=== PATIENT | female | born 1940 | race Caucasian/White ===

== ENCOUNTER → 2016-06-26 | Outpatient (CLI) | payer MEDICARE ==
[~2016-06-26] MED LIST: BIOT7500 PO; BRIM0.2S4 LEFT EYE; CALC500C2 CHEW; CHOL1TAB42 PO; COZA50TA PO; DORZ2SOL15 EACH EYE; ESTR1TAB PO; FLEC1TAB8 PO; GABA300 PO; GABA300C5 PO; LIDO1PAD TOP; LIDO2GEL11 TOPICAL; LOSA50TA PO; MEDR2.5T19 PO; MEDR2.5T2 PO; METH50TA2 PO; POTA99TA12 PO; PRESCAP5 PO; PRIL20CA9 PO; TAMB50TA2 PO
[2016-06-26 12:13] LABS: AUTOMATED NEUTROPHIL # 3.8 TH/MM3 (1.8-7.7); BASOPHIL # 0.1 TH/MM3 (0-0.2); BASOPHIL % 0.9 % (0.0-2.0); EOSINOPHIL # 0.2 TH/MM3 (0-0.4); EOSINOPHIL % 3.6 % (0.0-4.0); HEMATOCRIT 41.9 % (35.0-46.0); HEMO FLAGS DIFF FINAL; LYMPH % 17.9 % (9.0-44.0); LYMPHOCYTE # 1.1 TH/MM3 (1.0-4.8); MEAN CELL VOLUME 94.3 FL (80.0-100.0); MEAN CORPUSCULAR HEMOGLOBIN 31.2 PG (27.0-34.0); MEAN CORPUSCULAR HGB CONC 33.1 % (32.0-36.0); MONO % 16.2 % (0.0-8.0); NEUT % 61.4 % (16.0-70.0); PLATELET COUNT 293 TH/MM3 (150-450); RED BLOOD COUNT 4.44 MIL/MM3 (4.00-5.30); RED CELL DISTRIBUTION WIDTH 13.4 % (11.6-17.2); WHITE BLOOD COUNT 6.2 TH/MM3 (4.0-11.0)
[2016-06-26 12:17] LABS: BACTERIA, URINE RARE /hpf; BLOOD, URINE NEG (NEG); GLUCOSE,URINE NEG (NEG); KETONE, URINE NEG (NEG); NITRITE,URINE NEG (NEG); SQUAMOUS EPITHELIAL CELL URINE 1 /hpf (0-5); URINE COLOR YELLOW (YELLW/STRAW)
[2016-06-26 12:33] LABS: BICARBONATE 27.4 MEQ/L (21.0-32.0); POTASSIUM 4.4 MEQ/L (3.5-5.1)
--- NOTE | 2016-06-27 16:59 | EKG ---
Date Performed: 06/26/2016 Time Performed: 11:46:08 PTAGE: 75 years EKG: Sinus rhythm WITH FIRST DEGREE AV BLOCK INCOMPLETE RIGHT BUNDLE BRANCH BLOCK POSSIBLE ANTERIOR MYOCARDIAL INFARCT ION, OF INDETERMINATE AGE Since previous tracing, no significant change noted ABNORMAL ECG PREVIOUS TRACING : 10/31/2013 14.12.40 DOCTOR: Michael Napier Interpretating Date/Time 06/27/2016 16:59:17
== END ==
LOC: CPRE 10:35
PROVIDERS: ATTEND Obstetrics & Gynecology
DX: Z01.812 Encounter for preprocedural laboratory examination (principal); Z01.810 Encounter for preprocedural cardiovascular examination; R19.00 Intra-abdominal and pelvic swelling, mass and lump, unspecified site; R94.31 Abnormal electrocardiogram [ECG] [EKG]
CPT/HCPCS: 36415; 80048; 81001; 85025; 93005

== ENCOUNTER → 2016-06-29 | Day surgery (SDC) | payer MEDICARE ==
--- NOTE | 2016-06-28 18:22 | MH ---
cc: DAVIDSON MENDEZ DATE OF ADMISSION 06/29/2016 DATE OF 1940 DATE OF PROCEDURE June 29, 2016 SCHEDULED PROCEDURE Hysteroscopy with MyoSure removal of polyp using the MyoSure technique. HISTORY OF THE PRESENT CONDITION The patient is a very pleasant but somewhat complicated 75-year-old, , white female para 2 with intact pelvis who has been having is been having multiple postmenopausal bleeding episodes. She is scheduled for H scope and a MyoSure. She has been on estrogen and progestin. She has osteoporosis, gastroesophageal reflux disease. She is somewhat frail and has had multiple fractures. She has had a Medrol Dosepak x3 for back pain this year. Her initial bleed occurred this May and it was for two to three days. It was complicated by some cramping. She had to stop her diclofenac due to tummy upset. She was not sure if that was related to the bleeding. She does have a property analyst Dr. Ruiz she needs to see, she has pain in her feet and her thumbs. She has had no recent colds or infection. ALLERGIES SHE IS ALLERGIC TO SULFA AND AZITHROMYCIN. MEDICATIONS Her medications: 1. Omeprazole 20. 2. Medroxyprogesterone 2.5. 3. Losartan. 4. Lidocaine ointment. 5. Glaucoma drops. 6. Gabapentin 300 twice a day. 7. Estradiol 1 milligram daily. Her weight is 130. Her blood pressure is 120/78. She is 5'9". She does not smoke. PHYSICAL EXAMINATION NECK: She has no thyroid enlargement. LUNGS: Her lungs are clear to auscultation. CARDIOVASCULAR: Heart rate and rhythm are regular without murmur, heaves or thrills. BREASTS: Are without dominant mass, nipple discharge, skin retraction. She does not smoke, drink or use illicit drugs. PELVIC: Perineum is mildly atrophic. Vault is elevated. Cervix is multiparous. Uterus is small, anteverted. Both ovaries are not palpable. RECTAL: Guaiac is negative. IMPRESSION Postmenopausal bleeding with indices suggestive of a polyp. PLAN The plan is to proceed with removal of this and identification of any precancer or cancer. Risks, benefits and expectations have been discussed in detail and she is scheduled to proceed on morning. MD AMOL Davis/KK /5:40 PM /6:07 PM
[~2016-06-29] VITALS: Ht 175.3 cm; Wt 62.0 kg
[~2016-06-29] MED LIST changes: -BIOT7500 PO; -COZA50TA PO; +DEXAMETHASONE SOD PHOS 4 MG/ML VIAL ONE; +DICLOFENAC SODIUM 37.5 MG/ML VIAL IV PUSH ONE; +FAMOTIDINE 20 MG/2 ML VIAL ONE; -GABA300 PO; +HYDROCORTISONE SOD SUCCINATE 100 MG VIAL IV SCH; +INSULIN HUMAN REGULAR 1,000 UNITS/10 ML VIAL SQ PRN; +LACTATED RINGER'S 1000 ML IV SCH; -LIDO1PAD TOP; -MEDR2.5T19 PO; +METOPROLOL TARTRATE 25 MG TAB PO PRN; +MIDAZOLAM HCL 2 MG/2 ML VIAL ONE; +ONDANSETRON HCL 4 MG/2 ML VIAL IV PUSH ONE; -POTA99TA12 PO; +PROPOFOL 200 MG/20 ML AMP IV ONE; +SODIUM CHLORID 0.9% 500 ML IV SCH; -TAMB50TA2 PO; +ceFAZolin 1,000 MG/NS 100 ML IV SCH; +fentaNYL CITRATE 250 MCG/5 ML AMP ONE
[2016-06-29 06:31] VITALS: BP 158/80; PULSE 68; RESP 20; TEMP 98.2; O2SAT 99
--- NOTE | 2016-06-29 09:06 | MP ---
cc: CARMELINA MENDEZ M.D. Corrected: 07/03/2016 DATE OF SURGERY June 29, 2016 DATE OF 1940. PREOPERATIVE DIAGNOSIS Postmenopausal spotting and bleeding with polyps seen on Endosee. POSTOPERATIVE DIAGNOSIS Postmenopausal spotting and bleeding with polyps seen on Endosee. PROCEDURE Hysteroscopy and MyoSure excision of small polyps and endometrial lining. ANESTHESIA General. SURGEON MD Terrence BARREL DRILLER Jim, third year medical student FINDINGS The intrauterine cavity was largely atrophic with a couple of small polyps at the top. There was an area of a little bit of exuberant tissue on the posterior wall which was excised, otherwise the cavity was remarkably clean with no evidence of fibroids, synechiae, muellerian anomalies. There was no iatrogenic injury or other intrinsic pathology identified. Fluid deficit was negligible. Sponge, instrument and needle count were correct and she tolerated the procedure well. PROCEDURE The patient was identified as Sheridan Ferguson. Her permit was reviewed with her in holding. She was taken to the operating room, administered 1 gram of Ancef. She was prepped and draped in the usual sterile fashion after undergoing anesthesia in the dorsal lithotomy position. A red rubber catheter was used to drain the bladder. Examination under anesthesia was performed and a time-out was performed with all in attendance. The uterus was anteverted, mobile, small. The ovaries were not palpable. There was really negligible descent. The cervix was without any obvious lesions. It was very gently dilated to avoid perforation of the small uterus and then to allow the MyoSure hysteroscope into the intrauterine cavity. Excellent visualization was obtained with systematic evaluation of the entire intrauterine cavity. The MyoSure was used to remove the small polyp and most of the lower uterine endometrium which seemed a little bit more lush than it should be for a 68-year-old woman. This will all be sent to pathology. There was no iatrogenic injury. The instrumentation was removed, she was placed in dorsal supine position, awoken and taken to the recovery room in stable condition. Carmelina Mendez MD PPC/SSB /8:39 AM /8:53 AM [facility]ITALMary Ellen
[2016-06-29 10:00] VITALS: BP 150/69; PULSE 57; RESP 16; TEMP 97.8; O2SAT 97
== END | disposition home or self-care (01) ==
LOC: HSDC 05:44
PROVIDERS: ATTEND Obstetrics & Gynecology
DX: N84.0 Polyp of corpus uteri (principal); N95.0 Postmenopausal bleeding
CPT/HCPCS: 00952; 58561; 86850; 86900; 86901; 88305; J0690; J1100; J1130; J2250; J2405; J3010; J7120

== ENCOUNTER 2017-08-16 14:50 | Inpatient (IN) | payer MEDICARE ==
[~2017-08-16] VITALS: Ht 175.3 cm; Wt 58.0 kg
[~2017-08-16 14:50] MED LIST changes: -DEXAMETHASONE SOD PHOS 4 MG/ML VIAL ONE; -DICLOFENAC SODIUM 37.5 MG/ML VIAL IV PUSH ONE; -FAMOTIDINE 20 MG/2 ML VIAL ONE; -HYDROCORTISONE SOD SUCCINATE 100 MG VIAL IV SCH; -INSULIN HUMAN REGULAR 1,000 UNITS/10 ML VIAL SQ PRN; -LACTATED RINGER'S 1000 ML IV SCH; -METOPROLOL TARTRATE 25 MG TAB PO PRN; -MIDAZOLAM HCL 2 MG/2 ML VIAL ONE; -ONDANSETRON HCL 4 MG/2 ML VIAL IV PUSH ONE; -PROPOFOL 200 MG/20 ML AMP IV ONE; -SODIUM CHLORID 0.9% 500 ML IV SCH; -ceFAZolin 1,000 MG/NS 100 ML IV SCH; -fentaNYL CITRATE 250 MCG/5 ML AMP ONE
[2017-08-16] MEDS ORDERED: ONDANSETRON ODT 4 MG TAB PO ONE (15:15)
[2017-08-16 15:43] VITALS: BP 188/91; PULSE 81; RESP 19; TEMP 98.5; O2SAT 97
--- NOTE | 2017-08-16 15:53 | RADRPT ---
EXAM DATE/TIME: 08/16/2017 15:25 [place] COMPARISON: No previous studies available for comparison. INDICATIONS : Left hip pain after fall on tile. MEDICAL HISTORY : None. SURGICAL HISTORY : None. ENCOUNTER: Initial ACUITY: 1 day PAIN SCORE: 10/10 LOCATION: Left hip. FINDINGS: There is evidence of an acute fracture involving the junction of the left superior pubic ramus and sy mphysis pubis. Mild degenerative changes are noted involving the hips bilaterally. CONCLUSION: Acute fracture involving the junction of the left superior pubic ramus and symphysis pubis. William Yarbrough MD on August 16, 2017 at 15:48 Board Certified Radiologist. This report was verified electronically.
[2017-08-16] MEDS ORDERED: MORPHINE SULFATE 4 MG/ML INJ IM ONE (16:00)
--- NOTE | 2017-08-16 16:04 | PD ---
HPI Chief Complaint: Fall Time Seen by Provider: 15:25 Travel History International Travel<30 days: No Contact w/Intl Traveler<30days: No Traveled to known affect area: No History of Present Illness HPI 76-year-old female presents to emergency department with complaint of left hip pain after losing her balance while holding a bathroom door open and trying to throw away a napkin at the same time and falling from a standing position onto tile floor today. Denies hitting her head or loss of consciousness. Denies neck pain, back pain, headache. Denies anticoagulant therapy. Denies lightheadedness, dizziness. Reports nausea without vomiting. Denies paresthesias, loss of sensation to bilateral lower extremities. Reports decreased range of motion of the left lower extremity secondary to hip pain. Rates pain 10/10. Describes it as a stabbing sensation. Pain is worse with movement. Better at rest. Allergies to sulfa. Primary care provider is Dr. Montoya. Orthopedic doctor is Dr. Valenzuela. History of mitral valve prolapse and hypertension. Has no other medical complaints. No other modifying factors or associated signs and symptoms. PFSH Past Medical History Arthritis: Yes (OA) Heart Rhythm Problems: No Cancer: Yes (MELANOMA ) Cardiac Catheterization: No Cardiovascular Problems: Yes (MITRAL VALVUE PROLAPS) High Cholesterol: No Congestive Heart Failure: No Diabetes: No Diminished Hearing: No Endocrine: No GERD: Yes Genitourinary: No Hepatitis: No Hiatal Hernia: No Hypertension: Yes Immune Disorder: No Medical other: Yes (BROKEN NECK C-5) Musculoskeletal: Yes (OA ) Neurologic: No Psychiatric: No Reproductive: No Respiratory: No Thyroid Disease: No ?: Not Menopausal: Yes Past Surgical History Abdominal Surgery: Yes (APPY) AICD: No Appendectomy: Yes Body Medical Devices: NONE Cardiac Surgery: No Coronary Artery Bypass Graft: No Ear Surgery: No Endocrine Surgery: No Eye Surgery: Yes (CATARACT KELY) Genitourinary Surgery: No Gynecologic Surgery: No Joint Replacement: Yes (R TKA) Oral Surgery: No Pacemaker: No Thoracic Surgery: No Tonsillectomy: Yes Other Surgery: Yes Social History Alcohol Use: Yes (2 GLASSES OF WINE AT [employer]) Tobacco Use: No (QUIT 50 YRS AGO) Substance Use: No Allergies-Medications (Allergen,Severity, Reaction): Coded Allergies: Sulfa (Sulfonamide Antibiotics) (Unverified Allergy, Severe, rash, 4/12/18 ) azithromycin (Unverified Allergy, Severe, rash, 08/16/17) erythromycin base (Unverified Allergy, Mild, RASH, 08/16/17) Uncoded Allergies: ADHESIVE (Allergy, Unknown, SKIN REDNESS FROM CONTACT WITH ADHESIVE, ) Reported Meds & Prescriptions Reported Meds & Active Scripts Active Wheelchair (Device) 1 Mis Mis Ea .XX DIRECTED Walker/Adult/Folding (Device) 1 Mis Mis Ea .XX DIRECTED Zofran Odt (Ondansetron Odt) 4 Mg Tab 4 Mg SL Q8HR PRN Ibuprofen 600 Mg Tab 600 Mg PO Q6H PRN Percocet (Oxycodone-Acetaminophen) 2.5-325 mg Tab 1 Tab PO Q4H PRN Robaxin (Methocarbamol) 500 Mg Tab 500 Mg PO QID PRN Reported Hydrochlorothiazide 12.5 Mg Cap 12.5 Mg PO DAILY Preservision Areds (Multiple Vitamins W/ Minerals) 1 Tab 2 Tab PO DAILY Cranberry Urinary Comfort (Vitamins C & E) 1 Cap 1 Cap PO DAILY Acidophilus Lactobacillus (Lactobacillus Acidophilus) 1 Each Capsule Vitamin B-12 (Cyanocobalamin) 1,000 Mcg Tab 1,000 Mcg PO DAILY Medroxyprogesterone Acetate 5 Mg Tab 2.5 Mg PO DAILY Start day 21 Latanoprost Opth Drops (Latanoprost) 0.005% Drops 1 Drop LEFT EYE HS Refrigerate until opened. Omeprazole 20 Mg Tab 20 Mg PO DAILY Vitamin D-3 (Cholecalciferol) 2,000 Unit Tab 2,000 Mg PO DAILY Calcium (Calcium Carbonate-Cholecalciferol) 1,250-100 Mg-Unit Chew 1 Tab CHEW DAILY Dorzolamide-Timolol Opth Drops 22.3-6.8 Mg/Ml Soln 1 Drop EACH EYE BID Brimonidine Opth Drops (Brimonidine Tartrate) 0.2% Soln 1 Drop LEFT EYE BID Estradiol 1 Mg Tab 1 Mg PO DAILY Flecainide (Flecainide Acetate) 50 Mg Tab 50 Mg PO DAILY Gabapentin 300 Mg Cap 300 Mg PO HS Losartan (Losartan Potassium) 50 Mg Tab 50 Mg PO DAILY Methazolamide 50 Mg Tab 25 Mg PO BID Review of Systems Except as stated in HPI: all other systems reviewed are Neg Physical Exam Narrative GENERAL: Well-nourished, well-developed female patient, in no acute distress; afebrile, nontoxic-appearing SKIN: Warm and dry. HEAD: Atraumatic. Normocephalic. EYES: Pupils equal and round. No scleral icterus. No injection or drainage. ENT: Mucosa pink and moist. Airway patent. NECK: Moving freely. Trachea midline. CARDIOVASCULAR: Regular rate and rhythm. No murmur appreciated. RESPIRATORY: No accessory muscle use. Lungs sounds clear and equal bilaterally. GASTROINTESTINAL: Abdomen soft, non-tender, nondistended. Positive bowel sounds. No hepato-splenomegaly, or palpable masses. No guarding. MUSCULOSKELETAL: Left hip with full active flexion; without erythema, edema, or ecchymosis; unable to assess abduction secondary to patient; no tenderness on palpation to the lateral or anterior aspect on palpation; no obvious deformity; no leg length discrepancy. Left lower extremity is supple and non-tense with 2 + pedal pulse and sensory intact and without erythema or edema. NEUROLOGICAL: Awake and alert. Oriented 3. No obvious cranial nerve deficits. Motor grossly within normal limits. Normal speech. PSYCHIATRIC: Appropriate mood and affect; insight and judgment normal. Data Data Last Documented VS Vital Signs Date Time Temp Pulse Resp B/P (MAP) Pulse Ox O2 Delivery O2 Flow Rate FiO2 08/16/17 15:43 98.5 81 19 188/91 (123) 97 Room Air Orders Orders Hip, Uni(Ap&Lat) W Ap Pelvis (08/16/17 15:06) Ice/Cold Pack (08/16/17 15:06) Ondansetron Odt (Zofran Odt) (08/16/17 15:15) Morphine Inj (Morphine Inj) (08/16/17 16:00) Iv Access Insert/Monitor (08/16/17 16:46) Ondansetron Inj (Zofran Inj) (08/16/17 17:00) Diet Regular Basic (08/16/17 Dinner) Admit Order (Ed Use Only) (08/16/17 17:08) [facility] Medical Decision Making Medical Screen Exam Complete: Yes Emergency Medical Condition: Yes Medical Record Reviewed: Yes Differential Diagnosis Fall, pelvic fracture, hip fracture, contusion Narrative Course 76-year-old female with complaint of left hip pain after mechanical fall today. Denies hitting her head or loss of consciousness. Denies neck pain or back pain. Left hip with AP pelvis and Zofran ordered in triage. Morphine IM ordered 1615: Left hip with pelvis x-ray concluded: Hip and Pelvis X-Ray 08/16/17 1506 Signed Impressions: Service Date/Time: August 15:25 - CONCLUSION: Acute fracture involving the junction of the left superior pubic ramus and symphysis pubis. William Yarbrough MD X-ray findings discussed with the patient and patient given a copy of the x-ray report. Patient does not feel comfortable going home and continues to be nauseated. She says she lives alone and has nobody to help her. I talked to case management and they recommended admission. Call placed to [facility] for patient admission. 1710: I spoke with , [facility] and report was given for patient admission; admit to Dr. Mendoza. Diagnosis Primary Impression: Fall Qualified Codes: W19.XXXA - Unspecified fall, initial encounter Additional Impression: Pubic bone fracture Qualified Codes: S32.592A - Other specified fracture of left pubis, initial encounter for closed fracture Referrals: Orthopaedic Surgeon Primary Care Physician Patient Instructions: Fall Prevention for Older Adults (ED), General Instructions, Pelvic Fracture (ED) Additional Instructions: Percocet as prescribed and as needed for pain; do not drive or drink alcohol while taking Percocet Ibuprofen as directed and as needed for pain; may alternate with Percocet to help minimize pain and inflammation Ice to affected area to help decrease pain and inflammation Wheelchair/walker for support Physical therapy as needed for rehabilitation Follow-up with primary care provider Follow-up with orthopedic surgeon Return to the emergency department immediately with worsening of symptoms Med/Other Pt SpecificInfo: Prescription(s) given Scripts Wheelchair (Wheelchair) 1 Mis Mis EA .XX DIRECTED, #1 0 Refills Prov: Jo Ann Rincon [employer] 08/16/17 Walker/Adult/Folding (Walker/Adult/Folding) 1 Mis Mis EA .XX DIRECTED, #1 0 Refills Prov: Jo Ann Rincon [employer] 08/16/17 Ondansetron Odt (Zofran Odt) 4 Mg Tab 4 MG SL Q8HR Y for Nausea/Vomiting, #10 TAB 0 Refills Prov: RassJo Ann bang 08/16/17 Ibuprofen (Ibuprofen) 600 Mg Tab 600 MG PO Q6H Y for PAIN LESS THAN 5 ON SCALE, #20 TAB 0 Refills Prov: Jo Ann Rincon 08/16/17 Oxycodone-Acetaminophen (Percocet) 2.5-325 mg Tab 1 TAB PO Q4H Y for PAIN GREATER THAN 5, #20 TAB 0 Refills Prov: Jo Ann Rincon 08/16/17 Methocarbamol (Robaxin) 500 Mg Tab 500 MG PO QID Y for MUSCLE SPASM, #30 TAB 0 Refills Prov: Jo Ann Rincon 08/16/17 Disposition: 01 DISCHARGE HOME Condition: Stable Jo Ann Rincon Aug 16, 2017 16:04
[2017-08-16] MEDS ORDERED: VITA10002 PO (16:06)
[2017-08-16] MEDS ORDERED: OCUVTAB4 PO (16:06)
[2017-08-16] MEDS ORDERED: CRANCAP2 PO (16:06)
[2017-08-16] MEDS ORDERED: LATA0.002 LEFT EYE (16:06)
[2017-08-16] MEDS ORDERED: LACT1CAP20 (16:06)
[2017-08-16] MEDS ORDERED: OMEP20TA93 PO (16:06)
[2017-08-16] MEDS ORDERED: HYDR12.57 PO (16:06)
[2017-08-16] MEDS ORDERED: MEDR5TAB3 PO (16:06)
[2017-08-16] MEDS ORDERED: ZOFR4TAB3 SL (16:20)
[2017-08-16] MEDS ORDERED: IBUP-232 PO (16:20)
[2017-08-16] MEDS ORDERED: PERC2.5T PO (16:20)
[2017-08-16] MEDS ORDERED: ROBA500T PO (16:20)
[2017-08-16] MEDS ORDERED: WALKER/ADULT/FO1 MIS (16:23)
[2017-08-16] MEDS ORDERED: WHEEMIS3 (16:23)
[2017-08-16] MEDS ORDERED: METHOCARBAMOL 500 MG TAB PO ONE (16:45)
[2017-08-16] MEDS ORDERED: ONDANSETRON HCL 4 MG/2 ML VIAL IVP ONE (17:00)
[2017-08-16] MEDS ORDERED: MORPHINE SULFATE 4 MG/ML INJ IV PUSH ONE (18:00)
[2017-08-16 18:02] VITALS: BP 165/76; PULSE 72; RESP 21; O2SAT 98
[2017-08-16] MEDS ORDERED: MORPHINE SULFATE 4 MG/ML INJ IV PUSH PRN (19:45)
[2017-08-16] MEDS ORDERED: SODIUM CHLOR 0.9% 1000 ML INJ 1,000 ML IV SCH (19:45)
[2017-08-16] MEDS ORDERED: METHOCARBAMOL 500 MG TAB PO PRN (19:45)
[2017-08-16] MEDS ORDERED: LORazepam 2 MG/ML VIAL IV PUSH PRN (19:45)
--- NOTE | 2017-08-16 19:56 | HHI.HP ---
HPI Service [facility] Hospitalists Primary Care Physician Rick Montoya MD Admission Diagnosis fall, Pubic fracture Chief Complaint: pelvic pain s/p fall, n/v Travel History International Travel<30 Days: No Contact w/Intl Traveler <30 Da: No Traveled to Known Affected Are: No History of Present Illness 76-year-old female with history of hypertension presents to emergency department with complaint of left hip pain after losing her balance while holding a bathroom door open and trying to throw away a napkin at the same time and falling from a standing position onto tile floor today. Denies hitting her head or loss of consciousness. Denies neck pain, back pain, headache. Noted immediate pain in left hip and pelvis area. Denies anticoagulant therapy. Denies lightheadedness, dizziness. Denies chest pain. Reports nausea without vomiting. Denies paresthesias, loss of sensation to bilateral lower extremities. Reports decreased range of motion of the left lower extremity secondary to hip pain. Rates pain 10/10. Describes it as a stabbing sensation. Pain is worse with movement. Better at rest. Allergies to sulfa. Primary care provider is Dr. Montoya. Orthopedic doctor is Dr. Valenzuela. She has chronic left foot pain over the last year due to a stress fracture. She has been attending physical therapy over the last year per her report. No other modifying factors or associated signs and symptoms. She is a and lives alone. She has a son in the area but no one else to help her at home she reports. She has not been able to keep much down since the injury and is only had a couple of crackers to eat due to nausea. Review of Systems Constitutional: COMPLAINS OF: Fatigue, DENIES: Diaphoretic episodes, Fever, Weight gain, Weight loss, Chills, Dizziness, Change in appetite, Night Sweats Eyes: DENIES: Blurred vision, Diplopia, Eye inflammation, Eye pain, Vision loss , Photosensitivity, Double Vision Ears, nose, mouth, throat: DENIES: Tinnitus, Hearing loss, Vertigo, Nasal discharge, Oral lesions, Throat pain, Hoarseness, Ear Pain, Running Nose, Epistaxis, Sinus Pain, Toothache, Odynophagia Respiratory: DENIES: Apneas, Cough, Snoring, Wheezing, Hemoptysis, Sputum production, Shortness of breath Cardiovascular: DENIES: Chest pain, Palpitations, Syncope, Dyspnea on Exertion , PND, Lower Extremity Edema, Orthopnea, Claudication Gastrointestinal: DENIES: Abdominal pain, Black stools, Bloody stools, BRB per rectum, Constipation, Diarrhea, GERD, Nausea, Reflux, Vomiting, Difficulty Swallowing, Anorexia, See HPI Genitourinary: COMPLAINS OF: Abnormal vaginal bleeding Musculoskeletal: COMPLAINS OF: Joint pain, Back pain Integumentary: DENIES: Abnormal pigmentation, Pruritus, Rash, Nail changes, Breast masses, Breast skin changes, Nipple discharge Hematologic/lymphatic: COMPLAINS OF: Bruising Immunologic/allergic: DENIES: Eczema, Urticaria Neurologic: COMPLAINS OF: Abnormal gait Psychiatric: COMPLAINS OF: Anxiety Past Family Social History Past Medical History Glaucoma Hypertension Osteoporosis GERD Abnormal vaginal bleeding 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 Past Surgical History Hysteroscopy Colles' fracture repair Right total knee replacement Appendectomy Melanoma excision from upper back Reported Medications Robaxin (Methocarbamol) 500 Mg Tab 500 Mg PO QID PRN Hydrochlorothiazide 12.5 Mg Cap 12.5 Mg PO DAILY Preservision Areds (Multiple Vitamins W/ Minerals) 1 Tab 2 Tab PO DAILY Cranberry Urinary Comfort (Vitamins C & E) 1 Cap 1 Cap PO DAILY Acidophilus Lactobacillus (Lactobacillus Acidophilus) 1 Each Capsule Vitamin B-12 (Cyanocobalamin) 1,000 Mcg Tab 1,000 Mcg PO DAILY Medroxyprogesterone Acetate 5 Mg Tab 2.5 Mg PO DAILY Start day 21 Latanoprost Opth Drops (Latanoprost) 0.005% Drops 1 Drop LEFT EYE HS Refrigerate until opened. Omeprazole 20 Mg Tab 20 Mg PO DAILY Vitamin D-3 (Cholecalciferol) 2,000 Unit Tab 2,000 Mg PO DAILY Calcium (Calcium Carbonate-Cholecalciferol) 1,250-100 Mg-Unit Chew 1 Tab CHEW DAILY Dorzolamide-Timolol Opth Drops 22.3-6.8 Mg/Ml Soln 1 Drop EACH EYE BID Brimonidine Opth Drops (Brimonidine Tartrate) 0.2% Soln 1 Drop LEFT EYE BID Estradiol 1 Mg Tab 1 Mg PO DAILY Flecainide (Flecainide Acetate) 50 Mg Tab 50 Mg PO DAILY Gabapentin 300 Mg Cap 300 Mg PO HS Losartan (Losartan Potassium) 50 Mg Tab 50 Mg PO DAILY Methazolamide 50 Mg Tab 25 Mg PO BID Allergies: Coded Allergies: Sulfa (Sulfonamide Antibiotics) (Unverified Allergy, Severe, rash, 08/16/17 ) azithromycin (Unverified Allergy, Severe, rash, 08/16/17) erythromycin base (Unverified Allergy, Mild, RASH, 08/16/17) Uncoded Allergies: ADHESIVE (Allergy, Unknown, SKIN REDNESS FROM CONTACT WITH ADHESIVE, ) Family History Noncontributory Social History No tobacco since in her early college years Drinks 2 glasses of wine each night Lives alone and is a Previously worked in [employer] business and [employer] business has been in this area since Physical Exam Vital Signs Vital Signs Date Time Temp Pulse Resp B/P (MAP) Pulse Ox O2 Delivery O2 Flow Rate FiO2 08/16/17 18:02 72 21 165/76 (105) 98 08/16/17 15:43 98.5 81 19 188/91 (123) 97 Room Air Physical Exam GENERAL: This is a well-nourished, well-developed patient, in mild distress regarding left hip pain and left calf muscle spasm SKIN: Few purpuric lesions on arms and forearms with healing surface wound right forearm.. Cool and dry. HEAD: Atraumatic. Normocephalic. No temporal or scalp tenderness. EYES: Pupils equal round and reactive. Extraocular motions intact. No scleral icterus. No injection or drainage. ENT: Nose without bleeding, purulent drainage or septal hematoma. Airway patent. NECK: Trachea midline. No JVD or lymphadenopathy. Supple, nontender, no meningeal signs. CARDIOVASCULAR: Regular rate and rhythm without murmurs, gallops, or rubs. RESPIRATORY: Clear to auscultation. Breath sounds equal bilaterally. No wheezes , rales, or rhonchi. GASTROINTESTINAL: Abdomen soft, non-tender, nondistended. No hepato-splenomegaly , or palpable masses. No guarding. MUSCULOSKELETAL: Extremities without clubbing, cyanosis, or edema. Calf spasm left lower extremity, tenderness palpation over the left lateral and mid pelvis with guarding and resistance to movement of lower extremity per NEUROLOGICAL: Awake and alert. Cranial nerves II through XII intact. Motor and sensory grossly within normal limits. Five out of 5 muscle strength in all muscle groups. Normal speech. Imaging Last 72 hours Impressions Hip and Pelvis X-Ray 08/16/17 1506 Signed Impressions: Service Date/Time: August 15:25 - CONCLUSION: Acute fracture involving the junction of the left superior pubic ramus and symphysis pubis. MD Leta Bennetti VTE Risk Assessment Caprini VTE Risk Assessment: Mod/High Risk (score >= 2) Caprini Risk Assessment Model Point Value = 1 Point Value = 2 Point Value = 3 Point Value = 5 Age 41-60 Minor surgery BMI > 25 kg/m2 Swollen legs Varicose veins or History of unexplained or recurrent spontaneous Oral contraceptives or hormone replacement Sepsis (< 1 month) Serious lung disease, including pneumonia (< 1 month) Abnormal pulmonary function Acute myocardial infarction Congestive heart failure (< 1 month) History of inflammatory bowel disease Medical patient at bed rest Age 61-74 Arthroscopic surgery Major open surgery (> 45 min) Laparoscopic surgery (> 45 min) Malignancy Confined to bed (> 72 hours) Immobilizing plaster cast Central venous access Age >= 75 History of VTE Family history of VTE Factor V Leiden Prothrombin [id number] Lupus anticoagulant Anticardiolipin antibodies Elevated serum homocysteine Heparin-induced thrombocytopenia Other congenital or acquired thrombophilia Stroke (< 1 month) Elective arthroplasty Hip, pelvis, or leg fracture Acute spinal cord injury (< 1 month) Prophylaxis Regimen Total Risk Factor Score Risk Level Prophylaxis Regimen 0-1 Low Early ambulation 2 Moderate Order ONE of the following: *Sequential Compression Device (SCD) *Heparin 5000 units SQ BID 3-4 Higher Order ONE of the following medications: *Heparin 5000 units SQ TID *Enoxaparin/Lovenox 40 mg SQ daily (WT < 150 kg, CrCl > 30 mL/min) *Enoxaparin/Lovenox 30 mg SQ daily (WT < 150 kg, CrCl > 10-29 mL/min) *Enoxaparin/Lovenox 30 mg SQ BID (WT < 150 kg, CrCl > 30 mL/min) AND/OR *Sequential Compression Device (SCD) 5 or more Highest Order ONE of the following medications: *Heparin 5000 units SQ TID (Preferred with Epidurals) *Enoxaparin/Lovenox 40 mg SQ daily (WT < 150 kg, CrCl > 30 mL/min) *Enoxaparin/Lovenox 30 mg SQ daily (WT < 150 kg, CrCl > 10-29 mL/min) *Enoxaparin/Lovenox 30 mg SQ BID (WT < 150 kg, CrCl > 30 mL/min) AND *Sequential Compression Device (SCD) Assessment and Plan Problem List: (1) Pelvis fracture ICD Codes: S32.9XXA - Fracture of unspecified parts of lumbosacral spine and pelvis, initial encounter for closed fracture Plan: Initial plan was to try to discharge patient home but she was in too much pain requiring IV pain medication and was not able to tolerate oral intake well due to pain induced nausea. We will admit observation status for pain control, antiemetic administration and arrangement for rehab placement. (2) Fall ICD Codes: W19.XXXA - Unspecified fall, initial encounter Status: Acute Plan: No worrisome preceding events. Appears to be mechanical fall while trying to hold open the door at a local [facility] center restroom. Do not suspect central neurologic or cardiac etiology of fall. (3) HTN (hypertension) ICD Codes: I10 - HTN (hypertension) Status: Chronic Plan: Continue prescription medication (4) GERD (gastroesophageal reflux disease) ICD Codes: K21.9 - GERD (gastroesophageal reflux disease) Status: Chronic Plan: Continue medication Code Status Full Discussed Condition With Patient and ER provider Problem Qualifiers (1) Pelvis fracture: Qualified Codes: S32.89XA - Fracture of other parts of pelvis, initial encounter for closed fracture (2) Fall: Qualified Codes: W19.XXXA - Unspecified fall, initial encounter (3) HTN (hypertension): Qualified Codes: I10 - Essential (primary) hypertension Edilberto Trinidad MD PhD Aug 16, 2017 19:56
[2017-08-16] MEDS ORDERED: PRIL20TA2 (20:03)
[2017-08-16] MEDS: BRIMONIDINE TARTRATE 0.2% OPHT SOLN 5 ML BTL LEFT EYE SCH (21:00)
[2017-08-16] MEDS ORDERED: KETOROLAC TROMETHAMINE 30 MG/ML (IVP) VIAL IV PUSH ONE (21:00)
[2017-08-16] MEDS: LATANOPROST 0.005% OPHT SOLN 2.5 ML BTL LEFT EYE SCH (21:00)
[2017-08-16] MEDS: DORZOLAMIDE/TIMOLOL OPTH SOLN 10 ML BTL EACH EYE SCH (21:00)
[2017-08-16 21:09] VITALS: BP 186/84; PULSE 82; RESP 20; TEMP 97.7; O2SAT 99
[2017-08-16] MEDS: GABAPENTIN 300 MG CAP PO SCH (21:53)
[2017-08-17] VITALS (7 sets, daily range): BP systolic 143–191; BP diastolic 65–88; PULSE 65–82; RESP 16–20; TEMP 96.9–98.6; O2SAT 92–100
[2017-08-17] MEDS: ONDANSETRON HCL 4 MG/2 ML VIAL IV PUSH PRN ×3 (00:50→22:10)
[2017-08-17 03:52] LABS: AUTOMATED NEUTROPHIL # 8.4 TH/MM3 (1.8-7.7); BASOPHIL % 0.2 % (0.0-2.0); LYMPH % 5.6 % (9.0-44.0); LYMPHOCYTE # 0.5 TH/MM3 (1.0-4.8); MEAN CELL VOLUME 93.1 FL (80.0-100.0); MEAN CORPUSCULAR HEMOGLOBIN 32.5 PG (27.0-34.0); MEAN CORPUSCULAR HGB CONC 34.9 % (32.0-36.0); MEAN PLATELET VOLUME 8.4 FL (7.0-11.0); MONO % 7.2 % (0.0-8.0); MONOCYTE # 0.7 TH/MM3 (0-0.9); PLATELET COUNT 265 TH/MM3 (150-450); RED CELL DISTRIBUTION WIDTH 12.6 % (11.6-17.2); WHITE BLOOD COUNT 9.7 TH/MM3 (4.0-11.0)
[2017-08-17 04:14] LABS: BICARBONATE 24.5 MEQ/L (21.0-32.0); CALCIUM 8.6 MG/DL (8.5-10.1); CREATININE 0.49 MG/DL (0.50-1.00)
[2017-08-17] MEDS ORDERED: ONDANSETRON HCL 4 MG/2 ML VIAL IV PUSH SCH (04:30)
[2017-08-17] MEDS ORDERED: ENALAPRILAT 1.25 MG/ML VIAL IV PUSH SCH (04:30)
[2017-08-17] MEDS ORDERED: MORPHINE SULFATE 2 MG/ML SYRINGE IV SCH (04:30)
[2017-08-17] MEDS ORDERED: PANTOPRAZOLE SODIUM 40 MG VIAL IV PUSH ONE (04:45)
[2017-08-17 04:49] LABS: TROPONIN I LESS THAN 0.02 NG/ML (0.02-0.05)
[2017-08-17] MEDS ORDERED: PANTOPRAZOLE SODIUM 40 MG VIAL IV PUSH SCH (05:00)
[2017-08-17] MEDS ORDERED: ACETAMINOPHEN 500 MG CPLT PO PRN (08:30)
[2017-08-17] MEDS: DORZOLAMIDE/TIMOLOL OPTH SOLN 10 ML BTL EACH EYE SCH ×2 (09:00→20:24)
[2017-08-17] MEDS: BRIMONIDINE TARTRATE 0.2% OPHT SOLN 5 ML BTL LEFT EYE SCH ×2 (09:00→20:24)
[2017-08-17] MEDS: LOSARTAN 50 MG TAB PO SCH ×3 (09:51→20:26)
[2017-08-17] MEDS: ACETAMINOPHEN/HYDROcodone 325 MG/5 MG TAB PO PRN (09:55)
[2017-08-17] MEDS: PANTOPRAZOLE SOD 20 MG DELAYED RELEASE TAB PO SCH (09:56)
[2017-08-17] MEDS ORDERED: LORazepam 2 MG/ML VIAL IV PUSH PRN (11:15)
--- NOTE | 2017-08-17 11:19 | HHI.PR ---
Subjective Remarks painful with movement. Objective Vitals Vital Signs Date Time Temp Pulse Resp B/P (MAP) Pulse Ox O2 Delivery O2 Flow Rate FiO2 08/17/17 08:13 97.9 73 18 164/70 (101) 98 08/17/17 05:55 74 165/77 (106) 100 08/17/17 04:00 96.9 80 19 191/88 (122) 96 08/17/17 00:00 97.5 65 18 164/77 (106) 96 08/16/17 21:09 97.7 82 20 186/84 (118) 99 08/16/17 18:02 72 21 165/76 (105) 98 08/16/17 15:43 98.5 81 19 188/91 (123) 97 Room Air Result Diagram: 08/17/17 0130 08/17/17 0130 Imaging Last 72 hours Impressions Hip and Pelvis X-Ray 08/16/17 1506 Signed Impressions: Service Date/Time: August 15:25 - CONCLUSION: Acute fracture involving the junction of the left superior pubic ramus and symphysis pubis. William Yarbrough MD Objective Remarks GENERAL: This is a well-nourished, well-developed patient, in no apparent distress. CARDIOVASCULAR: Regular rate and rhythm without murmurs, gallops, or rubs. RESPIRATORY: Clear to auscultation. Breath sounds equal bilaterally. No wheezes , rales, or rhonchi. GASTROINTESTINAL: Abdomen soft, non-tender, nondistended. Normal active bowel sounds MUSCULOSKELETAL: Extremities without clubbing, cyanosis, or edema. NEURO: Alert & Oriented x4 to person, place, time, situation. Moves all ext x4 A/P Problem List: (1) Pelvis fracture ICD Codes: S32.9XXA - Fracture of unspecified parts of lumbosacral spine and pelvis, initial encounter for closed fracture Plan: - Pt remains painful with movement - norco prn pain - request Orthopedic Consult, clarify weight bearing status - DVT prophylaxis - Pt lives alone - Anticipate d/c to SNF 08/18/17 - supportive care (2) Fall ICD Codes: W19.XXXA - Unspecified fall, initial encounter Status: Acute Plan: - No worrisome preceding events. Appears to be mechanical fall while trying to hold open the door at a local [facility] center restroom. - Do NOT suspect central neurologic or cardiac etiology of fall. - see above (3) HTN (hypertension) ICD Codes: I10 - HTN (hypertension) Status: Chronic Plan: Continue prescription medication (4) Hyponatremia ICD Codes: E87.1 - Hypo-osmolality and hyponatremia Status: Acute Plan: - likely d/t decreased PO intake, n/v related to fall and fracture - Pt received IVFs - Pt now tolerating PO intake. - await repeat BMP - check BMP in AM 08/18 (5) Hypokalemia ICD Codes: E87.6 - Hypokalemia Status: Acute Plan: - likely d/t poor PO intake with fall, n/v - await repeat BMP (6) GERD (gastroesophageal reflux disease) ICD Codes: K21.9 - GERD (gastroesophageal reflux disease) Status: Chronic Plan: - PPI Problem Qualifiers (1) Pelvis fracture: Qualified Codes: S32.89XA - Fracture of other parts of pelvis, initial encounter for closed fracture (2) Fall: Qualified Codes: W19.XXXA - Unspecified fall, initial encounter (3) HTN (hypertension): Qualified Codes: I10 - Essential (primary) hypertension (4) GERD (gastroesophageal reflux disease): Qualified Codes: K21.9 - Gastro-esophageal reflux disease without esophagitis Dandy Mendoza DO Aug 17, 2017 11:19
[2017-08-17 12:15] LABS: CALCIUM 8.7 MG/DL (8.5-10.1); CREATININE 0.99 MG/DL (0.50-1.00); MAGNESIUM 1.8 MG/DL (1.5-2.5)
[2017-08-17] MEDS: ESTRADIOL 1 MG TAB PO SCH (12:40)
[2017-08-17] MEDS: POTASSIUM CHLORIDE 20 MEQ CONTROLLED RELEASE TAB PO SCH ×2 (12:51→15:31)
[2017-08-17] MEDS ORDERED: NS + KCL 20 MEQ INJ 1,000 ML IV SCH (14:30)
[2017-08-17] MEDS: FLECAINIDE ACETATE 100 MG TAB PO SCH (15:31)
[2017-08-17] MEDS: ACETAMINOPHEN/HYDROcodone 325 MG/10 MG TAB PO PRN ×2 (15:33→22:10)
[2017-08-17] MEDS: NS + KCL 20 MEQ INJ 1,000 ML IV SCH (15:59)
[2017-08-17 16:19] LABS: SODIUM,RANDOM URINE 37 MEQ/L
[2017-08-17 17:21] LABS: OSMOLALITY,URINE 555 MOSM/KG (300-1300)
--- NOTE | 2017-08-17 19:58 | EKG ---
Date Performed: 08/17/2017 Time Performed: 04:11:42 PTAGE: 76 years EKG: Sinus rhythm WITH FIRST DEGREE AV BLOCK ABNORMAL ECG Since the PREVIOUS TRACING , no significant change noted PREVIOUS TRACIN06/26/16 @1146 DOCTOR: Bryce Patrick Interpretating Date/Time 08/17/2017 19:58:12
[2017-08-17] MEDS: LATANOPROST 0.005% OPHT SOLN 2.5 ML BTL LEFT EYE SCH (20:24)
[2017-08-17] MEDS: GABAPENTIN 300 MG CAP PO SCH (20:26)
[2017-08-18] VITALS: BP 139/71; PULSE 74; RESP 18; TEMP 98.5; O2SAT 96
[2017-08-18 03:21] VITALS: BP 194/91; PULSE 90; RESP 18; TEMP 97.6; O2SAT 95
[2017-08-18] MEDS: NS + KCL 20 MEQ INJ 1,000 ML IV SCH (03:36)
[2017-08-18] MEDS: ENALAPRILAT 1.25 MG/ML VIAL IV PUSH PRN ×2 (03:38→22:57)
[2017-08-18] MEDS: ACETAMINOPHEN/HYDROcodone 325 MG/10 MG TAB PO PRN ×2 (05:54→12:22)
--- NOTE | 2017-08-18 07:45 | PD.CONS ---
HPI Service Orthopedic Surgeons Consult Requested By Reason for Consult Pelvis fractures Primary Care Physician Rick Montoya MD Admission Diagnosis fall, Pubic fracture Diagnoses: (1) Pelvis fracture Diagnosis: Principal (2) Fall (3) HTN (hypertension) (4) Hyponatremia (5) Hypokalemia (6) GERD (gastroesophageal reflux disease) Chief Complaint: Left hip/groin pain History of Present Illness 76-year-old female with history of hypertension presents to emergency department with complaint of left hip pain after losing her balance while holding a bathroom door open and trying to throw away a napkin at the same time and falling from a standing position onto tile floor today. Denies hitting her head or loss of consciousness. Denies neck pain, back pain, headache. Noted immediate pain in left hip and pelvis area. Denies lightheadedness, dizziness. Denies paresthesias, loss of sensation to bilateral lower extremities. Reports decreased range of motion of the left lower extremity secondary to hip pain. Review of Systems Constitutional: DENIES: Fever Endocrine: DENIES: Polydipsia, Polyuria Eyes: DENIES: Blurred vision Ears, nose, mouth, throat: DENIES: Throat pain Respiratory: DENIES: Cough Cardiovascular: DENIES: Chest pain Gastrointestinal: COMPLAINS OF: Nausea, Vomiting, DENIES: Abdominal pain Genitourinary: DENIES: Urinary incontinence Musculoskeletal: COMPLAINS OF: Joint pain, Muscle aches Integumentary: DENIES: Rash Hematologic/lymphatic: DENIES: Bruising Immunologic/allergic: DENIES: Eczema Neurologic: DENIES: Abnormal gait Psychiatric: DENIES: Anxiety Past Family Social History Past Medical History Hypertension Past Surgical History Right total knee arthroplasty by Dr. Soy Valenzuela Reported Medications Please see full list, no anticoagulants Allergies: Coded Allergies: Sulfa (Sulfonamide Antibiotics) (Unverified Allergy, Severe, rash, 08/16/17 ) azithromycin (Unverified Allergy, Severe, rash, 08/16/17) erythromycin base (Unverified Allergy, Mild, RASH, 08/16/17) Uncoded Allergies: ADHESIVE (Allergy, Unknown, SKIN REDNESS FROM CONTACT WITH ADHESIVE, ) Active Ordered Medications Current Medications Medications (Trade) Dose Ordered Sig/Guerrero Route Start Time Stop Time Status Last Admin (Zofran Inj) 4 mg Q6HR PRN IV PUSH 08/16/17 19:45 08/17/17 22:10 (Alphagan 0.2% Opth Soln) 1 drop BID LEFT EYE 08/16/17 21:00 08/17/17 20:24 (Cosopt 2-0.5% Opth Soln) 1 drop BID EACH EYE 08/16/17 21:00 08/17/17 20:24 (Estradiol) 1 mg DAILY PO 08/17/17 09:00 08/17/17 12:40 (Tambocor) 50 mg DAILY PO 08/17/17 09:00 08/17/17 15:31 (Neurontin) 300 mg HS PO 08/16/17 21:00 08/17/17 20:26 (Xalatan 0.005% Opth Soln) 1 drop HS LEFT EYE 08/16/17 21:00 08/17/17 20:24 (Robaxin) 500 mg QID PRN PO 08/16/17 19:45 (Protonix) 20 mg DAILY PO 08/17/17 09:00 08/17/17 09:56 (Ativan Inj) 1 mg Q6H PRN IV PUSH 08/16/17 19:45 (Zebulon 5-325 Mg) 1 tab Q4H PRN PO 08/17/17 08:30 08/17/17 09:55 (Tylenol) 500 mg Q6H PRN PO 08/17/17 08:30 (Zebulon 10-325 Mg) 1 tab Q4H PRN PO 08/17/17 10:30 08/18/17 05:54 (Ativan Inj) 0.5 mg Q6H PRN IV PUSH 08/17/17 11:15 (Cozaar) 50 mg BID PO 08/17/17 21:00 08/17/17 20:26 Potassium Chloride/Sodium Chloride 1,000 ml @ 84 mls/hr [id number] IV 08/17/17 17:00 08/17/17 15:59 (Vasotec Inj) 1.25 mg Q6H PRN IV PUSH 08/17/17 17:30 08/18/17 03:38 Reported Meds & Active Scripts Active Wheelchair (Device) 1 Mis Mis Ea .XX DIRECTED Walker/Adult/Folding (Device) 1 Mis Mis Ea .XX DIRECTED Zofran Odt (Ondansetron Odt) 4 Mg Tab 4 Mg SL Q8HR PRN Ibuprofen 600 Mg Tab 600 Mg PO Q6H PRN Percocet (Oxycodone-Acetaminophen) 2.5-325 mg Tab 1 Tab PO Q4H PRN Robaxin (Methocarbamol) 500 Mg Tab 500 Mg PO QID PRN Reported Prilosec (Omeprazole Magnesium) 20 Mg Tab BID Hydrochlorothiazide 12.5 Mg Cap 12.5 Mg PO DAILY Preservision Areds (Multiple Vitamins W/ Minerals) 1 Tab 2 Tab PO DAILY Cranberry Urinary Comfort (Vitamins C & E) 1 Cap 1 Cap PO DAILY Acidophilus Lactobacillus (Lactobacillus Acidophilus) 1 Each Capsule Vitamin B-12 (Cyanocobalamin) 1,000 Mcg Tab 1,000 Mcg PO DAILY Medroxyprogesterone Acetate 5 Mg Tab 2.5 Mg PO DAILY Start day 21 Latanoprost Opth Drops (Latanoprost) 0.005% Drops 1 Drop LEFT EYE HS Refrigerate until opened. Omeprazole 20 Mg Tab 20 Mg PO DAILY Vitamin D-3 (Cholecalciferol) 2,000 Unit Tab 2,000 Mg PO DAILY Calcium (Calcium Carbonate-Cholecalciferol) 1,250-100 Mg-Unit Chew 1 Tab CHEW DAILY Dorzolamide-Timolol Opth Drops 22.3-6.8 Mg/Ml Soln 1 Drop EACH EYE BID Brimonidine Opth Drops (Brimonidine Tartrate) 0.2% Soln 1 Drop LEFT EYE BID Estradiol 1 Mg Tab 1 Mg PO DAILY Flecainide (Flecainide Acetate) 50 Mg Tab 50 Mg PO DAILY Gabapentin 300 Mg Cap 300 Mg PO HS Losartan (Losartan Potassium) 50 Mg Tab 50 Mg PO DAILY Methazolamide 50 Mg Tab 25 Mg PO BID Family History Noncontributory Social History Denies tobacco use Physical Exam Vital Signs Vital Signs Date Time Temp Pulse Resp B/P (MAP) Pulse Ox O2 Delivery O2 Flow Rate FiO2 08/18/17 03:21 97.6 90 18 194/91 (125) 95 08/18/17 00:00 98.5 74 18 139/71 (93) 96 08/17/17 20:00 98.3 82 18 161/70 (100) 94 08/17/17 18:16 98.0 76 16 143/65 (91) 92 08/17/17 12:03 98.6 72 20 160/70 (100) 98 08/17/17 08:13 97.9 73 18 164/70 (101) 98 Physical Exam Awake, alert, no acute distress. Normocephalic Pupils equal No JVD Moist mucous membranes Nonlabored respirations Regular rate Soft nontender abdomen Left lower extremity: Negative logroll. Mild hip/groin discomfort with range of motion of the left hip. Patient has no significant tenderness about the posterior aspect of her pelvis on the left side. Patient is neurovascularly intact distally. Sensation intact. Brisk cap refill. Bilateral upper extremities and right lower extremity: No significant tenderness palpation or visible deformities. Full active range of motion and strength throughout. Sensation intact. Brisk cap refill. No rash Normal affect Laboratory Laboratory Tests Test 08/17/17 11:21 08/17/17 15:50 08/18/17 06:30 Blood Urea Nitrogen 13 Creatinine 0.99 Random Glucose 129 Calcium Level 8.7 Magnesium Level 1.8 Sodium Level 126 Potassium Level 3.1 Chloride Level 90 Carbon Dioxide Level 26.0 Anion Gap 10 Estimat Glomerular Filtration Rate 54 Serum Osmolality 265 Urine Osmolality 555 Urine Random Sodium 37 Urine Random Chloride 37 Result Diagram: 08/17/17 0130 08/17/17 1121 Imaging Last 72 hours Impressions Hip and Pelvis X-Ray 08/16/17 1506 Signed Impressions: Service Date/Time: August 15:25 - CONCLUSION: Acute fracture involving the junction of the left superior pubic ramus and symphysis pubis. William Yarbrough MD Assessment & Plan Assessment and Plan 76-year-old female with left pubic rami fractures after mechanical trip and fall Options of management were discussed with the patient. At this time I would recommend nonoperative management with weightbearing as tolerated with a walker. Patient can mobilize with physical therapy. No plan for orthopedic intervention at this time. Patient can follow-up in my office in 2 weeks after discharge. Lashae Stevenson MD Aug 18, 2017 07:45
[2017-08-18 07:50] VITALS: BP 161/73; PULSE 75; RESP 18; TEMP 97.8; O2SAT 95
[2017-08-18 07:51] LABS: BICARBONATE 22.1 MEQ/L (21.0-32.0); CALCIUM 8.8 MG/DL (8.5-10.1); CREATININE 0.63 MG/DL (0.50-1.00)
[2017-08-18] MEDS: PANTOPRAZOLE SOD 20 MG DELAYED RELEASE TAB PO SCH (09:00)
[2017-08-18] MEDS: LOSARTAN 50 MG TAB PO SCH ×2 (09:00→21:37)
[2017-08-18] MEDS: DORZOLAMIDE/TIMOLOL OPTH SOLN 10 ML BTL EACH EYE SCH ×2 (09:01→21:37)
[2017-08-18] MEDS: BRIMONIDINE TARTRATE 0.2% OPHT SOLN 5 ML BTL LEFT EYE SCH ×2 (09:02→21:37)
[2017-08-18] MEDS ORDERED: COZA50TA PO (09:43)
[2017-08-18 12:00] VITALS: BP 156/68; PULSE 72; RESP 18; TEMP 97.3; O2SAT 96
[2017-08-18] MEDS ORDERED: MAGNESIUM HYDROXIDE SUSP 30 ML CUP PO PRN (13:00)
[2017-08-18] MEDS: ESTRADIOL 1 MG TAB PO SCH (13:25)
[2017-08-18] MEDS: FLECAINIDE ACETATE 100 MG TAB PO SCH (13:26)
[2017-08-18] MEDS ORDERED: HYDR-3366 PO (14:43)
[2017-08-18] MEDS: SENNOSIDES 8.6 MG TAB PO PRN (15:31)
[2017-08-18 16:00] VITALS: BP 140/71; PULSE 85; RESP 18; TEMP 97.8; O2SAT 100
--- NOTE | 2017-08-18 16:34 | HHI.DCPOC ---
Discharge Care Plan Diagnosis: (1) Pelvis fracture (2) Fall (3) Hyponatremia Goals to Promote Your Health * To prevent worsening of your condition and complications * To maintain your health at the optimal level Directions to Meet Your Goals Take your medications as prescribed Follow your dietary instruction Follow activity as directed Keep your appointments as scheduled Take your immunizations and boosters as scheduled If your symptoms worsen call your PCP, if no PCP go to Urgent Care Center or Emergency Room Smoking is Dangerous to Your Health. Avoid second hand smoke Call the 24-hour hour crisis hotline for domestic abuse at [facility] Aug 18, 2017 16:34
--- NOTE | 2017-08-18 16:36 | HHI.DS ---
Discharge Summary Admission Date Aug 17, 2017 at 15:51 Discharge Date: Aug 18, 2017 Admitting Diagnosis fall, Pubic fracture (1) Pelvis fracture Diagnosis: Principal ICD Codes: S32.9XXA - Fracture of unspecified parts of lumbosacral spine and pelvis, initial encounter for closed fracture (2) Fall ICD Codes: W19.XXXA - Unspecified fall, initial encounter Status: Acute (3) HTN (hypertension) ICD Codes: I10 - HTN (hypertension) Status: Chronic (4) Hyponatremia ICD Codes: E87.1 - Hypo-osmolality and hyponatremia Status: Acute (5) Hypokalemia ICD Codes: E87.6 - Hypokalemia Status: Acute (6) GERD (gastroesophageal reflux disease) ICD Codes: K21.9 - GERD (gastroesophageal reflux disease) Status: Chronic Consultants Dr. Stevenson, Orthopedic surgery Procedures None Brief History 76-year-old female with history of hypertension presents to emergency department with complaint of left hip pain after losing her balance while holding a bathroom door open and trying to throw away a napkin at the same time and falling from a standing position onto tile floor today. Denies hitting her head or loss of consciousness. Denies neck pain, back pain, headache. Noted immediate pain in left hip and pelvis area. Denies anticoagulant therapy. Denies lightheadedness, dizziness. Denies chest pain. Reports nausea without vomiting. Denies paresthesias, loss of sensation to bilateral lower extremities. Reports decreased range of motion of the left lower extremity secondary to hip pain. Rates pain 10/10. Describes it as a stabbing sensation. Pain is worse with movement. Better at rest. Allergies to sulfa. Primary care provider is Dr. Montoya. Orthopedic doctor is Dr. Valenzuela. She has chronic left foot pain over the last year due to a stress fracture. She has been attending physical therapy over the last year per her report. No other modifying factors or associated signs and symptoms. She is a and lives alone. She has a son in the area but no one else to help her at home she reports. She has not been able to keep much down since the injury and is only had a couple of crackers to eat due to nausea. CBC/BMP: 08/17/17 0130 08/18/17 0630 Significant Findings Laboratory Tests Test 08/17/17 01:30 08/17/17 11:21 08/17/17 15:50 08/18/17 06:30 Neutrophils (%) (Auto) 87.0 % (16.0-70.0) Lymphocytes (%) (Auto) 5.6 % (9.0-44.0) Neutrophils # (Auto) 8.4 TH/MM3 (1.8-7.7) Lymphocytes # (Auto) 0.5 TH/MM3 (1.0-4.8) Creatinine 0.49 MG/DL (0.50-1.00) Random Glucose 140 MG/DL (74-106) 129 MG/DL (74-106) Sodium Level 126 MEQ/L (136-145) 126 MEQ/L (136-145) 132 MEQ/L (136-145) Potassium Level 3.0 MEQ/L (3.5-5.1) 3.1 MEQ/L (3.5-5.1) Chloride Level 90 MEQ/L (98-107) 90 MEQ/L (98-107) Troponin I LESS THAN 0.02 NG/ML Estimat Glomerular Filtration Rate 54 ML/MIN (>89) Serum Osmolality 265 MOSM/KG (275-295) Imaging Last Impressions Hip and Pelvis X-Ray 08/16/17 1506 Signed Impressions: Service Date/Time: August 15:25 - CONCLUSION: Acute fracture involving the junction of the left superior pubic ramus and symphysis pubis. William Yarbrough MD PE at Discharge GENERAL: This is a well-nourished, well-developed patient, in no apparent distress. CARDIOVASCULAR: Regular rate and rhythm without murmurs, gallops, or rubs. RESPIRATORY: Clear to auscultation. Breath sounds equal bilaterally. No wheezes , rales, or rhonchi. GASTROINTESTINAL: Abdomen soft, non-tender, nondistended. Normal active bowel sounds MUSCULOSKELETAL: Extremities without clubbing, cyanosis, or edema. NEURO: Alert & Oriented x4 to person, place, time, situation. Moves all ext x4 Hospital Course Pelvis fracture - comgmt with Orthopedic Service - Pt remains painful with movement - norco prn pain - DVT prophylaxis - Pt lives alone - orders written for discharge to SNF 08/18/17 - awaiting SNF arrangements. Fall - mechanical fall while trying to hold open the door at a local hospice center restroom. - Do NOT suspect central neurologic or cardiac etiology of fall. - see above HTN (hypertension) Continue prescription medication Hyponatremia - improving - likely d/t decreased PO intake, n/v related to fall and fracture - Pt received IVFs - Pt now tolerating PO intake. - NA 132 (08/18) Hypokalemia - likely d/t poor PO intake with fall, n/v - await repeat BMP GERD (gastroesophageal reflux disease) - PPI Pt Condition on Discharge: Stable Discharge Disposition: Discharge to SNF Discharge Instructions DIET: Follow Instructions for: Heart Healthy Diet Activities you can perform: Weight Bearing as Jesús Follow up Referrals: Orthopedics - 2 Weeks with Lashae Stevenson MD PCP Follow-up - [address] Montoya New Medications: Hydrocodone-Acetaminophen (Mckinnon) 10-325 Mg Tab 1 TAB PO Q4H PRN for PAIN, #50 TAB 0 Refills Losartan (Cozaar) 50 Mg Tab 50 MG PO BID for blood pressure, #60 TAB 0 Refills Continued Medications: Brimonidine Opth Drops (Brimonidine Opth Drops) 0.2% Soln 1 DROP LEFT EYE BID for Intraocular pressure, #1 BOTTLE 0 Refills Calcium Carbonate-Cholecalciferol (Calcium) 1,250-100 Mg-Unit Chew 1 TAB CHEW DAILY, TAB Cholecalciferol (Vitamin D-3) 2,000 Unit Tab 2000 MG PO DAILY Cyanocobalamin (Vitamin B-12) 1,000 Mcg Tab 1000 MCG PO DAILY for Nutritional Supplement, #1 BOTTLE 0 Refills Dorzolamide-Timolol Opth Drops (Dorzolamide-Timolol Opth Drops) 22.3-6.8 Mg/Ml Soln 1 DROP EACH EYE BID for Glaucoma, BOTTLE 0 Refills Estradiol (Estradiol) 1 Mg Tab 1 MG PO DAILY for Estrogen Supplements, #30 TAB 0 Refills Flecainide (Flecainide) 50 Mg Tab 50 MG PO DAILY for Regulate Heart Beat, #60 TAB 0 Refills Gabapentin (Gabapentin) 300 Mg Cap 300 MG PO HS, #30 CAP 0 Refills Ibuprofen (Ibuprofen) 600 Mg Tab 600 MG PO Q6H PRN for PAIN LESS THAN 5 ON SCALE, #20 TAB 0 Refills Lactobacillus Acidophilus (Acidophilus Lactobacillus) 1 Each Capsule Latanoprost Opth Drops (Latanoprost Opth Drops) 0.005% Drops 1 DROP LEFT EYE HS for Glaucoma, #2.5 ML 0 Refills Refrigerate until opened. Medroxyprogesterone Acetate (Medroxyprogesterone Acetate) 5 Mg Tab 2.5 MG PO DAILY for Uterine bleeding, #5 TAB 0 Refills Start day 21 Methazolamide (Methazolamide) 50 Mg Tab 25 MG PO BID for Glaucoma, TAB 0 Refills Methocarbamol (Robaxin) 500 Mg Tab 500 MG PO QID PRN for MUSCLE SPASM, #30 TAB 0 Refills Multiple Vitamins W/ Minerals (Preservision Areds) 1 Tab 2 TAB PO DAILY for Nutritional Supplement, TAB 0 Refills Omeprazole (Omeprazole) 20 Mg Tab 20 MG PO DAILY, #30 TAB 0 Refills Omeprazole Magnesium (Prilosec) 20 Mg Tab BID Ondansetron Odt (Zofran Odt) 4 Mg Tab 4 MG SL Q8HR PRN for Nausea/Vomiting, #10 TAB 0 Refills Vitamins C & E (Cranberry Urinary Comfort) 1 Cap 1 CAP PO DAILY for Urinary Symptom Managemen, CAP 0 Refills Discontinued Medications: Hydrochlorothiazide (Hydrochlorothiazide) 12.5 Mg Cap 12.5 MG PO DAILY, #30 CAP 0 Refills Losartan (Losartan) 50 Mg Tab 50 MG PO DAILY for Blood Pressure Management, #30 TAB 0 Refills Oxycodone-Acetaminophen (Percocet) 2.5-325 mg Tab 1 TAB PO Q4H PRN for PAIN GREATER THAN 5, #20 TAB 0 Refills Additional Information Patient examined. Assessment and plan formulated with Kadie Salas PA-C. I agree with the above. Discharge orders were written on 08/18/17. Pt did NOT leave until 08/19 awaiting safe discharge arrangements. Kadie Salas Aug 18, 2017 16:35 Dandy Mendoza DO Aug 19, 2017 13:16
[2017-08-18 20:00] VITALS: BP 160/68; PULSE 91; RESP 18; TEMP 98.4; O2SAT 97
[2017-08-18] MEDS: LATANOPROST 0.005% OPHT SOLN 2.5 ML BTL LEFT EYE SCH (21:36)
[2017-08-18] MEDS: GABAPENTIN 300 MG CAP PO SCH (21:37)
[2017-08-18] MEDS: ONDANSETRON HCL 4 MG/2 ML VIAL IV PUSH PRN (22:57)
[2017-08-18] MEDS: ACETAMINOPHEN/HYDROcodone 325 MG/5 MG TAB PO PRN (22:58)
[2017-08-19] VITALS: BP 171/79; PULSE 78; RESP 18; TEMP 98.1; O2SAT 95
[2017-08-19 04:00] VITALS: BP 177/76; PULSE 78; RESP 18; TEMP 97.9; O2SAT 95
[2017-08-19] MEDS: ACETAMINOPHEN/HYDROcodone 325 MG/5 MG TAB PO PRN (04:27)
[2017-08-19] MEDS: NS + KCL 20 MEQ INJ 1,000 ML IV SCH (04:45)
[2017-08-19 08:00] VITALS: BP 148/85; PULSE 66; RESP 18; TEMP 97.4; O2SAT 99
[2017-08-19] MEDS: DORZOLAMIDE/TIMOLOL OPTH SOLN 10 ML BTL EACH EYE SCH (08:53)
[2017-08-19] MEDS: BRIMONIDINE TARTRATE 0.2% OPHT SOLN 5 ML BTL LEFT EYE SCH (08:54)
[2017-08-19] MEDS: FLECAINIDE ACETATE 100 MG TAB PO SCH (08:55)
[2017-08-19] MEDS: LOSARTAN 50 MG TAB PO SCH (08:55)
[2017-08-19] MEDS: ESTRADIOL 1 MG TAB PO SCH (08:55)
[2017-08-19] MEDS: PANTOPRAZOLE SOD 20 MG DELAYED RELEASE TAB PO SCH (08:55)
[2017-08-19] MEDS: SENNOSIDES 8.6 MG TAB PO PRN (09:06)
--- NOTE | 2017-08-19 11:06 | HHI.PR ---
Subjective Remarks Pt was discharged Sunday. Awaiting placement. Pt painful with standing. Objective Vitals Vital Signs Date Time Temp Pulse Resp B/P (MAP) Pulse Ox O2 Delivery O2 Flow Rate FiO2 08/19/17 08:00 97.4 66 18 148/85 (106) 99 08/19/17 04:00 97.9 78 18 177/76 (109) 95 08/19/17 00:00 98.1 78 18 171/79 (109) 95 08/18/17 20:00 98.4 91 18 160/68 (98) 97 08/18/17 16:00 97.8 85 18 140/71 (94) 100 08/18/17 12:00 97.3 72 18 156/68 (97) 96 Result Diagram: 08/17/17 0130 08/18/17 0630 Imaging Last 72 hours Impressions Hip and Pelvis X-Ray 08/16/17 1506 Signed Impressions: Service Date/Time: August 15:25 - CONCLUSION: Acute fracture involving the junction of the left superior pubic ramus and symphysis pubis. William Yarbrough MD Objective Remarks GENERAL: This is a well-nourished, well-developed patient, in no apparent distress. CARDIOVASCULAR: Regular rate and rhythm without murmurs, gallops, or rubs. RESPIRATORY: Clear to auscultation. Breath sounds equal bilaterally. No wheezes , rales, or rhonchi. GASTROINTESTINAL: Abdomen soft, non-tender, nondistended. Normal active bowel sounds MUSCULOSKELETAL: Extremities without clubbing, cyanosis, or edema. NEURO: Alert & Oriented x4 to person, place, time, situation. Moves all ext x4 Procedures None A/P Problem List: (1) Pelvis fracture ICD Codes: S32.9XXA - Fracture of unspecified parts of lumbosacral spine and pelvis, initial encounter for closed fracture Plan: - comgmt with Orthopedic Service - Pt remains painful with movement - norco prn pain - DVT prophylaxis - Pt lives alone - orders written for discharge to SNF 08/17/17 - awaiting SNF arrangements. (2) Fall ICD Codes: W19.XXXA - Unspecified fall, initial encounter Status: Acute Plan: - No worrisome preceding events. Appears to be mechanical fall while trying to hold open the door at a local hospice center restroom. - Do NOT suspect central neurologic or cardiac etiology of fall. - see above (3) HTN (hypertension) ICD Codes: I10 - HTN (hypertension) Status: Chronic Plan: Continue prescription medication (4) Hyponatremia ICD Codes: E87.1 - Hypo-osmolality and hyponatremia Status: Acute Plan: - improving - likely d/t decreased PO intake, n/v related to fall and fracture - Pt received IVFs - Pt now tolerating PO intake. - NA 132 (08/18) (5) Hypokalemia ICD Codes: E87.6 - Hypokalemia Status: Acute Plan: - likely d/t poor PO intake with fall, n/v - await repeat BMP (6) GERD (gastroesophageal reflux disease) ICD Codes: K21.9 - GERD (gastroesophageal reflux disease) Status: Chronic Plan: - PPI Problem Qualifiers (1) Pelvis fracture: Qualified Codes: S32.89XA - Fracture of other parts of pelvis, initial encounter for closed fracture (2) Fall: Qualified Codes: W19.XXXA - Unspecified fall, initial encounter (3) HTN (hypertension): Qualified Codes: I10 - Essential (primary) hypertension (4) GERD (gastroesophageal reflux disease): Qualified Codes: K21.9 - Gastro-esophageal reflux disease without esophagitis Dandy Mendoza DO Aug 19, 2017 11:06
[2017-08-19] MEDS: ONDANSETRON HCL 4 MG/2 ML VIAL IV PUSH PRN (11:11)
[2017-08-19] MEDS: ACETAMINOPHEN/HYDROcodone 325 MG/10 MG TAB PO PRN (11:12)
[2017-08-19 11:59] VITALS: BP 97/50; PULSE 66; RESP 18; TEMP 97; O2SAT 100
[2017-08-19] MEDS ORDERED: BISACODYL 10 MG SUPP RECTAL ONE (12:45)
[2017-08-20] MEDS ORDERED: BISACODYL 10 MG SUPP RECTAL SCH (09:00)
== END 2017-08-19 15:21 | DRG 536 ==
LOC: NEPD 14:50 → NEDA 17:11 → NEPGCP 19:43 → OBSVTOIN 08-17 15:51 → N06A 08-17 18:13
PROVIDERS: ADMIT Hospitalist; ATTEND Hospitalist
DX: S32.592A Other specified fracture of left pubis, initial encounter for closed fracture (principal); I34.1 Nonrheumatic mitral (valve) prolapse; E87.1 Hypo-osmolality and hyponatremia; I10 Essential (primary) hypertension; W01.0XXA Fall on same level from slipping, tripping and stumbling without subsequent striking against object, initial encounter; Y93.89 Activity, other specified; Y92.002 Bathroom of unspecified non-institutional (private) residence as the place of occurrence of the external cause; Y99.9 Unspecified external cause status; Z96.651 Presence of right artificial knee joint; Z85.820 Personal history of malignant melanoma of skin; M81.0 Age-related osteoporosis without current pathological fracture; H40.9 Unspecified glaucoma; K21.9 Gastro-esophageal reflux disease without esophagitis; Z88.2 Allergy status to sulfonamides; M79.672 Pain in left foot; G89.21 Chronic pain due to trauma; E87.6 Hypokalemia
CPT/HCPCS: 73502; 80048; 82436; 82550; 83735; 83930; 83935; 84300; 84484; 85025; 93005; 96361; 96372; 96374; 96375; C9113; G0378; G8987-GP; G8988-GP; J1885; J2060; J2270; J2405; J3480; J7030